=== PATIENT | female | born 1965 | race Caucasian/White ===

== ENCOUNTER 2017-09-08 20:06 | Inpatient (IN) | payer MEDICARE, MEDICAID ==
[~2017-09-08] VITALS: Ht 160 cm; Wt 87.0 kg
[~2017-09-08 20:06] MED LIST: TEAROS OU; THERAGRAN M1 TA1 PO
[2017-09-08] MEDS ORDERED: QUET100T PO (20:18)
[2017-09-08] MEDS ORDERED: HYD50 PO (20:18)
[2017-09-08] MEDS ORDERED: BUPR75 PO (20:18)
[2017-09-08] MEDS ORDERED: HALOPERIDOL LACTATE 5 MG/ML VIAL IM ONE (22:00)
[2017-09-08] MEDS ORDERED: DiphenhydrAMINE HCL 50 MG/ML VIAL IM ONE (22:00)
[2017-09-08 22:09] LABS: BASOPHILS % (AUTO) 0.5 % (0.0-2.0); EOSINOPHILS % (AUTO) 2.6 % (1.0-6.0); HEMOGLOBIN 13.8 g/dL (12.0-16.0); LYMPHOCYTES # (AUTO) 1.2 K/uL (1.0-4.8); LYMPHOCYTES % (AUTO) 27.4 % (22.0-44.0); MEAN CORPUSCULAR HEMOGLOBIN 31.8 pg (26.0-34.0); MEAN CORPUSCULAR HGB CONC 34.4 G/dL (31.0-37.0); MEAN CORPUSCULAR VOLUME 92 fL (80-100); MONOCYTES # (AUTO) 0.5 K/uL (0.1-1.0); MONOCYTES % (AUTO) 11.1 % (2.0-9.0); NEUTROPHILS # (AUTO) 2.6 K/uL (1.8-7.7); NEUTROPHILS % (AUTO) 58.4 % (40.0-70.0); RED BLOOD CELL COUNT(AUTO) 4.34 MIL/uL (4.00-5.20); RED CELL DISTRIBUTION WIDTH 14.8 % (11.5-14.5)
[2017-09-08 22:21] LABS: ANION GAP 6 mmol/L (8-16); CALCIUM, TOTAL 8.5 mg/dL (8.8-10.5); CARBON DIOXIDE 33 mmol/L (22-29); CHLORIDE 104 mmol/L (98-107); CREATININE 0.58 mg/dL (0.60-1.30); GLOMERULAR FILTR. RATE CALC > 60 mL/min (>60); GLUCOSE,RANDOM 131 mg/dL (70-110); POTASSIUM 3.7 mmol/L (3.5-5.1); SODIUM SERUM 143 mmol/L (136-145); UREA NITROGEN, BLOOD 12 mg/dL (7-18)
[2017-09-08 22:27] LABS: ALANINE AMINOTRANSFERASE 49 U/L (12-78); ALBUMIN 3.2 g/dL (3.4-5.0); ALKALINE PHOSPHATASE 134 U/L (46-116); ASPARTATE AMINOTRANSFERASE 54 U/L (15-37); BILIRUBIN,TOTAL 1.2 mg/dL (0.1-1.0); TOTAL PROTEIN, SERUM 6.3 g/dL (6.4-8.2)
[2017-09-08 22:33] LABS: PLATELET COUNT (AUTO) 51 K/uL (150-450)
[2017-09-08] MEDS ORDERED: HALOPERIDOL 5 MG TABLET PO PRN (22:45)
[2017-09-08] MEDS ORDERED: ZOLPIDEM TARTRATE 10 MG TABLET PO PRN (22:45)
[2017-09-09 02:47] VITALS: BP 109/60
[2017-09-09 02:48] VITALS: BP 109/60
[2017-09-09 02:49] VITALS: BP 109/60
[2017-09-09 09:05] VITALS: BP 100/60
[2017-09-09 16:21] VITALS: BP 119/62
[2017-09-09] MEDS: OLANZapine 5 MG TABLET PO SCH (20:54)
[2017-09-10 03:50] VITALS: BP 112/69
[2017-09-10 08:34] VITALS: BP 111/61
[2017-09-10] MEDS: FLUoxetine HCL 20 MG CAPSULE PO SCH (08:53)
[2017-09-10] MEDS: OLANZapine 5 MG TABLET PO SCH (20:36)
[2017-09-11 03:55] VITALS: BP 132/78
[2017-09-11] MEDS: LORazepam 2 MG TABLET PO PRN (04:43)
[2017-09-11 08:30] VITALS: BP 116/61
[2017-09-11] MEDS: FLUoxetine HCL 20 MG CAPSULE PO SCH (08:39)
[2017-09-11] MEDS ORDERED: CYCLOBENZAPRINE HCL 10 MG TABLET PO PRN (14:45)
[2017-09-11 14:49] VITALS: BP 134/78
[2017-09-11] MEDS: ACETAMINOPHEN 325 MG TABLET PO PRN (14:51)
[2017-09-11 16:21] VITALS: BP_SYST 111; BP_SYST 114; BP_DIAS 64; BP_DIAS 72
[2017-09-11] MEDS: OLANZapine 5 MG TABLET PO SCH (21:01)
[2017-09-12 01:23] VITALS: BP 126/74
[2017-09-12 08:11] LABS: HEMATOCRIT 42.6 % (36-46); HEMOGLOBIN 14.7 g/dL (12.0-16.0); MEAN CORPUSCULAR HEMOGLOBIN 31.8 pg (26.0-34.0); MEAN CORPUSCULAR HGB CONC 34.6 G/dL (31.0-37.0); MEAN CORPUSCULAR VOLUME 92 fL (80-100); PLATELET COUNT (AUTO) 44 K/uL (150-450); RED BLOOD CELL COUNT(AUTO) 4.63 MIL/uL (4.00-5.20); RED CELL DISTRIBUTION WIDTH 14.7 % (11.5-14.5)
[2017-09-12 08:38] LABS: ALANINE AMINOTRANSFERASE 33 U/L (12-78); ALKALINE PHOSPHATASE 113 U/L (46-116); ANION GAP 5 mmol/L (8-16); ASPARTATE AMINOTRANSFERASE 35 U/L (15-37); BILIRUBIN,TOTAL 1.2 mg/dL (0.1-1.0); CALCIUM, TOTAL 8.4 mg/dL (8.8-10.5); CARBON DIOXIDE 31 mmol/L (22-29); CHLORIDE 107 mmol/L (98-107); CHOLESTEROL 127 mg/dL (131-200); CREATININE 0.42 mg/dL (0.60-1.30); FREE T4 (FREE THYROXINE) 0.93 ng/dL (0.76-1.46); GLOMERULAR FILTR. RATE CALC > 60 mL/min (>60); GLUCOSE,RANDOM 93 mg/dL (70-110); HDL CHOLESTEROL 62 mg/dL (40-60); LDL CHOL (CALC.) 56 mg/dL (0-130); POTASSIUM 3.4 mmol/L (3.5-5.1); SODIUM SERUM 143 mmol/L (136-145); THYROID STIMULATING HORMONE 1.75 uIU/mL (0.36-3.74); TOTAL PROTEIN, SERUM 6.3 g/dL (6.4-8.2); TRIGLYCERIDES 45 mg/dL (15-150); UREA NITROGEN, BLOOD 11 mg/dL (7-18)
[2017-09-12 08:45] VITALS: BP 138/76
[2017-09-12 08:47] LABS: HEMOGLOBIN A1C 5.3 % (4.5-6.2)
[2017-09-12] MEDS: FLUoxetine HCL 20 MG CAPSULE PO SCH (08:57)
[2017-09-12] MEDS: ACETAMINOPHEN 325 MG TABLET PO PRN (09:22)
[2017-09-12 11:15] LABS: BAND NEUTROPHILS % (MANUAL) 1 % (1-5); LYMPHOCYTES % (MANUAL) 18 % (22-44); MONOCYTES % (MANUAL) 5 % (2-9); SEGMENTED NEUTROPHILS % 76 % (40-70)
[2017-09-12] MEDS: LORazepam 2 MG TABLET PO PRN (12:16)
[2017-09-12 16:11] VITALS: BP 139/76
[2017-09-12] MEDS: OLANZapine 10 MG TABLET PO SCH (20:44)
[2017-09-13] VITALS: BP 113/60
[2017-09-13] MEDS ORDERED: POTASSIUM CHLORIDE 20 MEQ ER TABLET PO ONE (07:00)
[2017-09-13] MEDS: FLUoxetine HCL 20 MG CAPSULE PO SCH (08:09)
[2017-09-13 08:29] VITALS: BP 131/66
[2017-09-13] MEDS: FOLIC ACID 1 MG TABLET PO SCH (15:41)
[2017-09-13 16:17] VITALS: BP 118/63
[2017-09-13] MEDS: HydrOXYzine PAMOATE 25 MG CAPSULE PO PRN (16:42)
[2017-09-13] MEDS: OLANZapine 10 MG TABLET PO SCH (20:32)
[2017-09-14 00:33] VITALS: BP 111/61
[2017-09-14] MEDS: FLUoxetine HCL 20 MG CAPSULE PO SCH (08:36)
[2017-09-14] MEDS: FOLIC ACID 1 MG TABLET PO SCH (08:36)
[2017-09-14 08:37] LABS: BASOPHILS % (AUTO) 0.4 % (0.0-2.0); EOSINOPHILS % (AUTO) 2.5 % (1.0-6.0); HEMOGLOBIN 14.6 g/dL (12.0-16.0); LYMPHOCYTES # (AUTO) 0.9 K/uL (1.0-4.8); LYMPHOCYTES % (AUTO) 29.9 % (22.0-44.0); MEAN CORPUSCULAR HEMOGLOBIN 31.7 pg (26.0-34.0); MEAN CORPUSCULAR HGB CONC 34.7 G/dL (31.0-37.0); MEAN CORPUSCULAR VOLUME 91 fL (80-100); MONOCYTES # (AUTO) 0.3 K/uL (0.1-1.0); MONOCYTES % (AUTO) 10.2 % (2.0-9.0); NEUTROPHILS # (AUTO) 1.8 K/uL (1.8-7.7); PLATELET COUNT (AUTO) 47 K/uL (150-450); RED CELL DISTRIBUTION WIDTH 14.3 % (11.5-14.5)
[2017-09-14 09:21] VITALS: BP 134/78
[2017-09-14] MEDS ORDERED: DiphenhydrAMINE HCL 50 MG/ML VIAL IM ONE (13:30)
[2017-09-14] MEDS ORDERED: LORazepam 2 MG/ML VIAL IM ONE (13:30)
[2017-09-14] MEDS ORDERED: HALOPERIDOL LACTATE 5 MG/ML VIAL IM ONE (13:30)
[2017-09-14 16:31] VITALS: BP 140/83
[2017-09-14] MEDS: OLANZapine 7.5 MG TABLET PO SCH (20:32)
[2017-09-15 06:35] VITALS: BP 105/66
[2017-09-15 08:34] VITALS: BP 124/77
[2017-09-15] MEDS: FLUoxetine HCL 20 MG CAPSULE PO SCH (08:45)
[2017-09-15] MEDS: FOLIC ACID 1 MG TABLET PO SCH (08:45)
[2017-09-15] MEDS: HydrOXYzine PAMOATE 25 MG CAPSULE PO PRN (16:27)
[2017-09-15 16:36] VITALS: BP 119/67
[2017-09-15] MEDS ORDERED: DiphenhydrAMINE HCL 50 MG/ML VIAL IM ONE (19:45)
[2017-09-15] MEDS ORDERED: LORazepam 2 MG/ML VIAL IM ONE (19:45)
[2017-09-15] MEDS ORDERED: HALOPERIDOL LACTATE 5 MG/ML VIAL IM ONE (19:45)
[2017-09-15 21:00] VITALS: BP 122/69
[2017-09-15] MEDS: OLANZapine 7.5 MG TABLET PO SCH (21:00)
[2017-09-16 06:00] VITALS: BP 108/72
[2017-09-16] MEDS: FLUoxetine HCL 20 MG CAPSULE PO SCH (08:31)
[2017-09-16] MEDS: FOLIC ACID 1 MG TABLET PO SCH (08:31)
[2017-09-16] MEDS: HydrOXYzine PAMOATE 25 MG CAPSULE PO PRN (09:31)
[2017-09-16] MEDS ORDERED: FLUO-191 PO (12:58)
[2017-09-16] MEDS ORDERED: OLAN10TA6 PO (12:58)
[2017-09-16] MEDS ORDERED: OLANZapine 10 MG TABLET PO SCH (21:00)
== END 2017-09-16 13:48 | disposition home or self-care (01) | DRG 885 ==
LOC: EMS 20:09 → B2X 09-09 00:27 → B2S 09-15 11:47
PROVIDERS: ADMIT Psychiatry & Neurology Psychiatry; ATTEND Psychiatry & Neurology Psychiatry
DX: F25.1 Schizoaffective disorder, depressive type (principal); D69.6 Thrombocytopenia, unspecified; R45.851 Suicidal ideations; K74.60 Unspecified cirrhosis of liver; B18.2 Chronic viral hepatitis C; F10.20 Alcohol dependence, uncomplicated; F41.9 Anxiety disorder, unspecified; F19.90 Other psychoactive substance use, unspecified, uncomplicated; K76.0 Fatty (change of) liver, not elsewhere classified; R45.850 Homicidal ideations; D72.819 Decreased white blood cell count, unspecified; F17.210 Nicotine dependence, cigarettes, uncomplicated; F60.3 Borderline personality disorder; Z79.899 Other long term (current) drug therapy
CPT/HCPCS: 80074; 82607; 82746; 83036; 84132; 84439; 84443; 85007; 96372; 99285; G0480; J1200; J1630; J2060; J3230

== ENCOUNTER 2017-11-16 15:03 | Inpatient (IN) | payer MEDICARE, MEDICAID ==
[~2017-11-16] VITALS: Ht 160 cm; Wt 90.7 kg
[~2017-11-16 15:03] MED LIST changes: +FLUO-191 PO; +OLAN10TA6 PO; -TEAROS OU; -THERAGRAN M1 TA1 PO
[2017-11-16] MEDS ORDERED: METF500T4 PO (15:12)
[2017-11-16] MEDS ORDERED: ESCI10TA PO (15:12)
[2017-11-16] MEDS ORDERED: MULT-1203 PO (15:20)
[2017-11-16] MEDS ORDERED: QUET100T PO (15:20)
[2017-11-16] MEDS ORDERED: BUPR150SR PO (15:20)
[2017-11-16] MEDS ORDERED: FOLI0.4T4 PO (15:20)
[2017-11-16 15:31] LABS: BASOPHILS % (AUTO) 0.5 % (0.0-2.0); EOSINOPHILS % (AUTO) 2.4 % (1.0-6.0); HEMATOCRIT 34.8 % (36-46); HEMOGLOBIN 12.1 g/dL (12.0-16.0); LYMPHOCYTES # (AUTO) 0.5 K/uL (1.0-4.8); LYMPHOCYTES % (AUTO) 24.7 % (22.0-44.0); MEAN CORPUSCULAR HEMOGLOBIN 31.6 pg (26.0-34.0); MEAN CORPUSCULAR HGB CONC 34.8 G/dL (31.0-37.0); MEAN CORPUSCULAR VOLUME 91 fL (80-100); MONOCYTES # (AUTO) 0.2 K/uL (0.1-1.0); MONOCYTES % (AUTO) 7.3 % (2.0-9.0); NEUTROPHILS # (AUTO) 1.4 K/uL (1.8-7.7); NEUTROPHILS % (AUTO) 65.1 % (40.0-70.0); RED BLOOD CELL COUNT(AUTO) 3.84 MIL/uL (4.00-5.20)
[2017-11-16 15:44] LABS: ANION GAP 5 mmol/L (8-16); CALCIUM, TOTAL 7.8 mg/dL (8.8-10.5); CARBON DIOXIDE 30 mmol/L (22-29); CHLORIDE 108 mmol/L (98-107); CREATININE 0.59 mg/dL (0.60-1.30); GLOMERULAR FILTR. RATE CALC > 60 mL/min (>60); GLUCOSE,RANDOM 173 mg/dL (70-110); SODIUM SERUM 143 mmol/L (136-145); UREA NITROGEN, BLOOD 8 mg/dL (7-18)
[2017-11-16 15:49] LABS: ALANINE AMINOTRANSFERASE 29 U/L (12-78); ALKALINE PHOSPHATASE 87 U/L (46-116); ASPARTATE AMINOTRANSFERASE 33 U/L (15-37); BILIRUBIN,TOTAL 1.3 mg/dL (0.1-1.0); TOTAL PROTEIN, SERUM 5.5 g/dL (6.4-8.2)
[2017-11-16] MEDS ORDERED: HALOPERIDOL 5 MG TABLET PO PRN (16:45)
[2017-11-16] MEDS ORDERED: ZOLPIDEM TARTRATE 10 MG TABLET PO PRN (16:45)
[2017-11-16 17:23] LABS: PATHOLOGY REVIEW, DIFF YES
[2017-11-16 18:20] VITALS: BP 118/80
[2017-11-16] MEDS: LORazepam 2 MG TABLET PO PRN (18:40)
[2017-11-16 19:20] VITALS: BP 120/86
[2017-11-16 20:00] VITALS: BP 109/62
[2017-11-16 21:00] VITALS: BP 107/63
[2017-11-16 22:00] VITALS: BP 104/61
[2017-11-16] MEDS ORDERED: INFLUENZA VIRUS VACCINE QVS 2017-18 (3YR+)/PF 60 MCG/0.5 ML SYRINGE IM ONE (22:00)
[2017-11-17] VITALS (9 sets, daily range): BP systolic 102–118; BP diastolic 60–79
[2017-11-17 08:35] LABS: CHOL/HDL RATIO 1.9 (3.9-5.7)
[2017-11-17] MEDS: NICOTINE 14 MG/24 HOUR PATCH TD SCH (09:00)
[2017-11-17] MEDS ORDERED: ACETAMINOPHEN 325 MG TABLET PO PRN (13:00)
[2017-11-17] MEDS ORDERED: IBUPROFEN 400 MG TABLET PO PRN (13:00)
[2017-11-17 13:28] LABS: PLATELET COUNT (AUTO) 41 K/uL (150-450)
[2017-11-17] MEDS: OLANZapine 10 MG TABLET PO SCH (21:15)
[2017-11-18 06:29] VITALS: BP_SYST 108; BP_SYST 98; BP_DIAS 64
[2017-11-18 08:09] VITALS: BP 110/70
[2017-11-18] MEDS: FLUoxetine HCL 20 MG CAPSULE PO SCH (08:31)
[2017-11-18] MEDS: FOLIC ACID 0.4 MG TABLET PO SCH (08:31)
[2017-11-18] MEDS: NICOTINE 14 MG/24 HOUR PATCH TD SCH (08:31)
[2017-11-18] MEDS: MULTIVITAMINS, THERAPEUTIC TABLET PO SCH (08:31)
[2017-11-18 09:24] VITALS: BP 110/70
[2017-11-18] MEDS: LORazepam 2 MG TABLET PO PRN (15:16)
[2017-11-18 16:00] VITALS: BP 121/74
[2017-11-18 16:09] VITALS: BP 121/74
[2017-11-18] MEDS: OLANZapine 10 MG TABLET PO SCH (20:06)
[2017-11-19 01:00] VITALS: BP 113/70
[2017-11-19] MEDS: MULTIVITAMINS, THERAPEUTIC TABLET PO SCH (08:06)
[2017-11-19] MEDS: FLUoxetine HCL 20 MG CAPSULE PO SCH (08:06)
[2017-11-19] MEDS: FOLIC ACID 0.4 MG TABLET PO SCH (08:06)
[2017-11-19] MEDS: LORazepam 2 MG TABLET PO PRN ×2 (08:07→17:08)
[2017-11-19] MEDS: NICOTINE 14 MG/24 HOUR PATCH TD SCH (08:12)
[2017-11-19 08:21] VITALS: BP 108/71
[2017-11-19 09:24] LABS: HEMOGLOBIN A1C 4.8 % (4.5-6.2)
[2017-11-19 09:36] LABS: CHOL/HDL RATIO 2.1 (3.9-5.7); THYROID STIMULATING HORMONE 1.66 uIU/mL (0.36-3.74)
[2017-11-19 13:08] VITALS: BP 108/71
[2017-11-19 16:04] VITALS: BP 107/65
[2017-11-19] MEDS: OLANZapine 10 MG TABLET PO SCH (20:31)
[2017-11-20 06:10] VITALS: BP 111/60
[2017-11-20] MEDS: FLUoxetine HCL 20 MG CAPSULE PO SCH (09:24)
[2017-11-20] MEDS: MULTIVITAMINS, THERAPEUTIC TABLET PO SCH (09:24)
[2017-11-20] MEDS: FOLIC ACID 0.4 MG TABLET PO SCH (09:24)
[2017-11-20] MEDS: LORazepam 2 MG TABLET PO PRN ×2 (09:25→18:43)
[2017-11-20] MEDS: NICOTINE 14 MG/24 HOUR PATCH TD SCH (09:25)
[2017-11-20 09:27] VITALS: BP 112/66
[2017-11-20 09:38] VITALS: BP 112/66
[2017-11-20 16:00] VITALS: BP 110/60
[2017-11-20] MEDS: OLANZapine 10 MG TABLET PO SCH (20:18)
[2017-11-21] VITALS (7 sets, daily range): BP systolic 101–118; BP diastolic 55–78
[2017-11-21] MEDS: FLUoxetine HCL 20 MG CAPSULE PO SCH (08:24)
[2017-11-21] MEDS: FOLIC ACID 0.4 MG TABLET PO SCH (08:24)
[2017-11-21] MEDS: MULTIVITAMINS, THERAPEUTIC TABLET PO SCH (08:24)
[2017-11-21] MEDS: NICOTINE 14 MG/24 HOUR PATCH TD SCH (08:24)
[2017-11-21 08:42] LABS: BASOPHILS % (AUTO) 0.3 % (0.0-2.0); EOSINOPHILS % (AUTO) 3.1 % (1.0-6.0); HEMATOCRIT 37.8 % (36-46); LYMPHOCYTES # (AUTO) 0.7 K/uL (1.0-4.8); LYMPHOCYTES % (AUTO) 28.9 % (22.0-44.0); MEAN CORPUSCULAR HEMOGLOBIN 31.4 pg (26.0-34.0); MEAN CORPUSCULAR HGB CONC 34.4 G/dL (31.0-37.0); MEAN CORPUSCULAR VOLUME 91 fL (80-100); MONOCYTES # (AUTO) 0.3 K/uL (0.1-1.0); MONOCYTES % (AUTO) 10.8 % (2.0-9.0); NEUTROPHILS # (AUTO) 1.4 K/uL (1.8-7.7); NEUTROPHILS % (AUTO) 56.9 % (40.0-70.0); PLATELET COUNT (AUTO) 44 K/uL (150-450); RED BLOOD CELL COUNT(AUTO) 4.15 MIL/uL (4.00-5.20); RED CELL DISTRIBUTION WIDTH 15.1 % (11.5-14.5)
[2017-11-21] MEDS: LORazepam 2 MG TABLET PO PRN (18:29)
[2017-11-21] MEDS: OLANZapine 10 MG TABLET PO SCH (20:08)
[2017-11-22 03:30] VITALS: BP 112/64
[2017-11-22] MEDS: FLUoxetine HCL 20 MG CAPSULE PO SCH (08:32)
[2017-11-22] MEDS: FOLIC ACID 0.4 MG TABLET PO SCH (08:32)
[2017-11-22] MEDS: MULTIVITAMINS, THERAPEUTIC TABLET PO SCH (08:32)
[2017-11-22 08:33] LABS: % IRON SATURATION 34.9 % (22-44)
[2017-11-22 08:37] VITALS: BP 120/70
[2017-11-22] MEDS: NICOTINE 14 MG/24 HOUR PATCH TD SCH (08:39)
[2017-11-22 14:00] VITALS: BP 120/70
[2017-11-22 14:02] VITALS: BP 120/70
[2017-11-22 16:07] VITALS: BP 137/72
[2017-11-22] MEDS ORDERED: FLUO-191 PO (19:03)
[2017-11-22] MEDS ORDERED: OLAN20TA2 PO (19:03)
== END 2017-11-22 19:30 | disposition home or self-care (01) | DRG 885 ==
LOC: EMS 15:03 → B2S 16:59 → B2X 11-21 17:39
PROVIDERS: ADMIT Psychiatry & Neurology Psychiatry; ATTEND Psychiatry & Neurology Psychiatry
DX: F25.9 Schizoaffective disorder, unspecified (principal); D69.59 Other secondary thrombocytopenia; R45.851 Suicidal ideations; R45.81 Low self-esteem; F17.200 Nicotine dependence, unspecified, uncomplicated; Z72.89 Other problems related to lifestyle; B18.2 Chronic viral hepatitis C; D64.9 Anemia, unspecified; D72.819 Decreased white blood cell count, unspecified; F10.10 Alcohol abuse, uncomplicated; F14.10 Cocaine abuse, uncomplicated; F32.9 Major depressive disorder, single episode, unspecified; Z91.19 Patient's noncompliance with other medical treatment and regimen
CPT/HCPCS: 82728; 83036; 83540; 83550; 84443; 99285; G0480

== ENCOUNTER 2019-08-31 11:03 | Inpatient (IN) | payer MEDICARE, MEDICAID ==
[~2019-08-31] VITALS: Ht 160 cm; Wt 101.6 kg
[~2019-08-31 11:03] MED LIST changes: +FOLI0.4T14 PO; +MULT-1203 PO; -OLAN10TA6 PO; +OLAN20TA2 PO
[2019-08-31 13:48] VITALS: BP 114/60
[2019-08-31] MEDS ORDERED: HALOPERIDOL 5 MG TABLET PO PRN ×2 (14:45→16:30)
[2019-08-31] MEDS ORDERED: ZOLPIDEM TARTRATE 10 MG TABLET PO PRN ×2 (14:45→16:30)
[2019-08-31] MEDS ORDERED: LORazepam 2 MG TABLET PO PRN ×2 (14:45→16:30)
[2019-08-31] MEDS ORDERED: INFLUENZA VIRUS VACCINE QVS 2019-20 (3YR+)/PF 60 MCG/0.5 ML SYRINGE IM ONE (15:15)
[2019-08-31] MEDS ORDERED: QUET200T PO (17:06)
[2019-08-31] MEDS ORDERED: LACT30L PO (17:06)
[2019-08-31] MEDS ORDERED: QUET100T PO (17:06)
[2019-08-31] MEDS ORDERED: BUPR-93 PO (17:06)
[2019-08-31 17:31] VITALS: BP 112/46
[2019-08-31 18:28] VITALS: BP 118/85
[2019-09-01] MEDS ORDERED: LACTULOSE 20 GM/30 ML SOLUTION UDCUP PO SCH (09:00)
[2019-09-01 09:16] LABS: BASOPHILS % (AUTO) 0.2 % (0.0-2.0); EOSINOPHILS % (AUTO) 1.6 % (1.0-6.0); HEMATOCRIT 40.2 % (36-46); LYMPHOCYTES # (AUTO) 0.5 K/uL (1.0-4.8); LYMPHOCYTES % (AUTO) 11.9 % (22.0-44.0); MEAN CORPUSCULAR HEMOGLOBIN 32.2 pg (26.0-34.0); MEAN CORPUSCULAR HGB CONC 34.9 G/dL (31.0-37.0); MEAN CORPUSCULAR VOLUME 92 fL (80-100); MONOCYTES # (AUTO) 0.3 K/uL (0.1-1.0); MONOCYTES % (AUTO) 8.4 % (2.0-9.0); NEUTROPHILS # (AUTO) 3.2 K/uL (1.8-7.7); NEUTROPHILS % (AUTO) 77.9 % (40.0-70.0); PLATELET COUNT (AUTO) 42 K/uL (150-450); RED BLOOD CELL COUNT(AUTO) 4.36 MIL/uL (4.00-5.20); RED CELL DISTRIBUTION WIDTH 16.1 % (11.5-14.5)
[2019-09-01 09:45] LABS: ALANINE AMINOTRANSFERASE 27 U/L (12-78); ALBUMIN 2.9 g/dL (3.4-5.0); ALKALINE PHOSPHATASE 93 U/L (46-116); ANION GAP 7 mmol/L (8-16); ASPARTATE AMINOTRANSFERASE 32 U/L (15-37); BILIRUBIN,TOTAL 1.7 mg/dL (0.1-1.0); CALCIUM, TOTAL 7.8 mg/dL (8.8-10.5); CARBON DIOXIDE 27 mmol/L (22-29); CHLORIDE 103 mmol/L (98-107); CHOL/HDL RATIO 1.7 (3.9-5.7); CHOLESTEROL 125 mg/dL (131-200); CREATININE 0.66 mg/dL (0.60-1.30); FREE T4 (FREE THYROXINE) 0.87 ng/dL (0.76-1.46); GLOMERULAR FILTR. RATE CALC > 60 mL/min (>60); GLUCOSE,RANDOM 213 mg/dL (70-110); HCG,QUANTITATIVE 2 mIU/mL (0-6); HDL CHOLESTEROL 74 mg/dL (40-60); LDL CHOL (CALC.) 42 mg/dL (0-130); POTASSIUM 3.8 mmol/L (3.5-5.1); SODIUM SERUM 137 mmol/L (136-145); THYROID STIMULATING HORMONE 1.67 uIU/mL (0.36-3.74); TOTAL PROTEIN, SERUM 5.5 g/dL (6.4-8.2); TRIGLYCERIDES 44 mg/dL (15-150); UREA NITROGEN, BLOOD 10 mg/dL (7-18)
== END 2019-09-01 02:16 | disposition short-term general hospital (02) | DRG 885 ==
LOC: B2S 13:20 → 6N 09-01 02:16
PROVIDERS: ADMIT Psychiatry & Neurology Psychiatry; ATTEND Psychiatry & Neurology Psychiatry
DX: F25.9 Schizoaffective disorder, unspecified (principal); F32.9 Major depressive disorder, single episode, unspecified; F10.20 Alcohol dependence, uncomplicated; M19.90 Unspecified osteoarthritis, unspecified site; F17.210 Nicotine dependence, cigarettes, uncomplicated; K74.60 Unspecified cirrhosis of liver
CPT/HCPCS: 84439; 84443; 90686; G0480

== ENCOUNTER 2019-08-31 18:59 | Inpatient (IN) | payer OTHER ==
[~2019-08-31] VITALS: Ht 160 cm; Wt 101.4 kg
[~2019-08-31 18:59] MED LIST changes: +BUPR-93 PO; +LACT30L PO; +QUET100T PO; +QUET200T PO
[2019-08-31 22:29] LABS: BASOPHILS % (AUTO) 0.4 % (0.0-2.0); EOSINOPHILS % (AUTO) 1.6 % (1.0-6.0); HEMATOCRIT 43.8 % (36-46); HEMOGLOBIN 14.9 g/dL (12.0-16.0); LYMPHOCYTES # (AUTO) 0.8 K/uL (1.0-4.8); LYMPHOCYTES % (AUTO) 17.6 % (22.0-44.0); MEAN CORPUSCULAR HEMOGLOBIN 31.5 pg (26.0-34.0); MEAN CORPUSCULAR HGB CONC 34.1 G/dL (31.0-37.0); MEAN CORPUSCULAR VOLUME 92 fL (80-100); MONOCYTES # (AUTO) 0.5 K/uL (0.1-1.0); MONOCYTES % (AUTO) 10.5 % (2.0-9.0); NEUTROPHILS # (AUTO) 3.1 K/uL (1.8-7.7); NEUTROPHILS % (AUTO) 69.9 % (40.0-70.0); RED BLOOD CELL COUNT(AUTO) 4.74 MIL/uL (4.00-5.20); RED CELL DISTRIBUTION WIDTH 16.2 % (11.5-14.5)
[2019-08-31 22:37] LABS: ANION GAP 6 mmol/L (8-16); CALCIUM, TOTAL 8.3 mg/dL (8.8-10.5); CARBON DIOXIDE 30 mmol/L (22-29); CHLORIDE 102 mmol/L (98-107); CREATININE 0.63 mg/dL (0.60-1.30); GLOMERULAR FILTR. RATE CALC > 60 mL/min (>60); GLUCOSE,RANDOM 117 mg/dL (70-110); SODIUM SERUM 138 mmol/L (136-145); UREA NITROGEN, BLOOD 7 mg/dL (7-18)
[2019-08-31 22:45] LABS: ALANINE AMINOTRANSFERASE 33 U/L (12-78); ALBUMIN 3.2 g/dL (3.4-5.0); ALKALINE PHOSPHATASE 99 U/L (46-116); ASPARTATE AMINOTRANSFERASE 34 U/L (15-37); BILIRUBIN,TOTAL 1.3 mg/dL (0.1-1.0); INR 1.2 (0.9-1.1); TOTAL PROTEIN, SERUM 6.1 g/dL (6.4-8.2)
[2019-08-31] MEDS ORDERED: LORazepam 1 MG TABLET PO ONE (22:45)
[2019-08-31] MEDS ORDERED: KETOROLAC TROMETHAMINE 60 MG/2 ML VIAL IM ONE (22:45)
[2019-08-31 23:04] LABS: PLATELET COUNT (AUTO) 47 K/uL (150-450); PLATELET MORPHOLOGY COMMENT LARGE PLTS PRESENT
[2019-08-31] MEDS ORDERED: LACTULOSE 20 GM/30 ML SOLUTION UDCUP PO ONE (23:30)
[2019-09-01] MEDS ORDERED: 0.9% SODIUM CHLORIDE 10 ML SYRINGE IVP PRN (04:45)
[2019-09-01] MEDS ORDERED: MAGNESIUM HYDROXIDE SUSPENSION 30 ML UDCUP PO PRN (04:45)
[2019-09-01] MEDS ORDERED: LACTULOSE 20 GM/30 ML SOLUTION UDCUP PO PRN (04:45)
[2019-09-01] MEDS ORDERED: OxyCODONE HCL/ACETAMINOPHEN 5-325 MG TABLET PO PRN (04:45)
[2019-09-01] MEDS ORDERED: ACETAMINOPHEN 325 MG TABLET PO PRN (04:45)
[2019-09-01 08:07] VITALS: BP 113/70
[2019-09-01] MEDS: DOCUSATE SODIUM 100 MG CAPSULE PO SCH ×2 (09:00→20:41)
[2019-09-01] MEDS ORDERED: INFLUENZA VIRUS VACCINE QVS 2019-20 (3YR+)/PF 60 MCG/0.5 ML SYRINGE IM ONE (10:30)
[2019-09-01] MEDS ORDERED: PNEUMOCOCCAL VACCINE POLYVALENT 0.5 ML VIAL [PPSV23] IM ONE (10:30)
[2019-09-01 11:13] VITALS: BP 107/71
[2019-09-01] MEDS: MULTIVITAMINS, THERAPEUTIC TABLET PO SCH (13:44)
[2019-09-01] MEDS: ChlordiazePOXIDE HCL 25 MG CAPSULE PO PRN ×2 (13:44→16:44)
[2019-09-01] MEDS: FOLIC ACID 0.4 MG TABLET PO SCH (13:44)
[2019-09-01 16:04] VITALS: BP 130/84
[2019-09-01 20:00] VITALS: BP 144/75
[2019-09-01] MEDS: LACTULOSE 20 GM/30 ML SOLUTION UDCUP PO SCH (20:40)
[2019-09-01] MEDS: QUEtiapine FUMARATE 200 MG TABLET PO SCH (20:41)
[2019-09-01] MEDS: OxyCODONE HCL/ACETAMINOPHEN 5-325 MG TABLET PO PRN (20:42)
[2019-09-02] VITALS (7 sets, daily range): BP systolic 109–144; BP diastolic 48–79
[2019-09-02] MEDS: OxyCODONE HCL/ACETAMINOPHEN 5-325 MG TABLET PO PRN (05:46)
[2019-09-02] MEDS ORDERED: ChlordiazePOXIDE HCL 25 MG CAPSULE PO PRN (07:00)
[2019-09-02 07:21] LABS: BASOPHILS % (AUTO) 0.4 % (0.0-2.0); EOSINOPHILS % (AUTO) 1.4 % (1.0-6.0); HEMATOCRIT 43.6 % (36-46); HEMOGLOBIN 14.9 g/dL (12.0-16.0); LYMPHOCYTES # (AUTO) 0.8 K/uL (1.0-4.8); LYMPHOCYTES % (AUTO) 16.4 % (22.0-44.0); MEAN CORPUSCULAR HEMOGLOBIN 31.7 pg (26.0-34.0); MEAN CORPUSCULAR HGB CONC 34.1 G/dL (31.0-37.0); MEAN CORPUSCULAR VOLUME 93 fL (80-100); MONOCYTES # (AUTO) 0.4 K/uL (0.1-1.0); MONOCYTES % (AUTO) 8.7 % (2.0-9.0); NEUTROPHILS # (AUTO) 3.5 K/uL (1.8-7.7); NEUTROPHILS % (AUTO) 73.1 % (40.0-70.0); PLATELET COUNT (AUTO) 43 K/uL (150-450); RED BLOOD CELL COUNT(AUTO) 4.69 MIL/uL (4.00-5.20); RED CELL DISTRIBUTION WIDTH 16.2 % (11.5-14.5)
[2019-09-02 07:40] LABS: ANION GAP 7 mmol/L (8-16); CALCIUM, TOTAL 8.1 mg/dL (8.8-10.5); CARBON DIOXIDE 28 mmol/L (22-29); CHLORIDE 105 mmol/L (98-107); CREATININE 0.68 mg/dL (0.60-1.30); GLOMERULAR FILTR. RATE CALC > 60 mL/min (>60); GLUCOSE,RANDOM 136 mg/dL (70-110); POTASSIUM 3.9 mmol/L (3.5-5.1); SODIUM SERUM 140 mmol/L (136-145); UREA NITROGEN, BLOOD 11 mg/dL (7-18)
[2019-09-02] MEDS: MULTIVITAMINS, THERAPEUTIC TABLET PO SCH (08:38)
[2019-09-02] MEDS: ChlordiazePOXIDE HCL 25 MG CAPSULE PO SCH ×3 (08:38→15:03)
[2019-09-02] MEDS: LACTULOSE 20 GM/30 ML SOLUTION UDCUP PO SCH ×2 (08:38→20:43)
[2019-09-02] MEDS: DOCUSATE SODIUM 100 MG CAPSULE PO SCH ×2 (08:38→20:43)
[2019-09-02] MEDS: FOLIC ACID 0.4 MG TABLET PO SCH (08:38)
[2019-09-02 13:21] LABS: ABG PCO2 49 mmHg (35-45); ABG PH 7.363 (7.35-7.450); PO2, ARTERIAL BG 68.5 mmHg (84.0-92.0); SITE, BLOOD GAS RT RADIAL; SOURCE, BLOOD GAS ARTERIAL; TEMPERATURE, FAHRENHEIT, BG 98.2 FAHREN (96.0-98.6)
[2019-09-02 13:22] LABS: ABG BASE EXCESS 1.7 mmol/L (-2.0-3.0); ABG CARBOXYHEMOGLOBIN 1.7 % (0.0-1.5); ABG HCO3 25.2 mmol/L (22.0-26.0); ABG METHEMOGLOBIN 0.2 % (0.0-1.5); ABG OXYGEN CONTENT 19.1 mL/dL (15.0-23.0); ABG OXYHEMOGLOBIN 91.2 % (94.0-100.0); ABG TOTAL HEMOGLOBIN 14.9 G/dL (12.0-18.0); O2 DEVICE,BLOOD GAS ROOM AIR (ROOM AIR)
[2019-09-02] MEDS ORDERED: ALBUTEROL SULFATE 2.5 MG/0.5 ML NEB SOLUTION NEB PRN (14:45)
[2019-09-02] MEDS ORDERED: HALOPERIDOL 5 MG TABLET PO PRN (19:00)
[2019-09-02] MEDS ORDERED: LORazepam 2 MG TABLET PO PRN (19:00)
[2019-09-02] MEDS: QUEtiapine FUMARATE 200 MG TABLET PO SCH (20:43)
[2019-09-03 00:15] VITALS: BP 117/47
[2019-09-03 04:00] VITALS: BP 108/41
[2019-09-03] MEDS: FOLIC ACID 0.4 MG TABLET PO SCH (08:30)
[2019-09-03] MEDS: MULTIVITAMINS, THERAPEUTIC TABLET PO SCH (08:30)
[2019-09-03] MEDS: LACTULOSE 20 GM/30 ML SOLUTION UDCUP PO SCH (08:30)
[2019-09-03] MEDS: DOCUSATE SODIUM 100 MG CAPSULE PO SCH (08:31)
[2019-09-03 08:34] VITALS: BP 107/56
[2019-09-03 11:38] VITALS: BP 119/57
[2019-09-03] MEDS ORDERED: FOLI1 PO (13:21)
[2019-09-03] MEDS ORDERED: ACET-2247 PO (13:30)
[2019-09-03] MEDS ORDERED: HALO5TAB2 PO (13:35)
[2019-09-03] MEDS ORDERED: LACT30L PO (13:36)
[2019-09-03] MEDS ORDERED: LORA-1001 PO (13:37)
[2019-09-03] MEDS ORDERED: THIA100T67 PO (13:38)
[2019-09-03] MEDS ORDERED: ALBU2TAB42 NEB (13:41)
[2019-09-03 15:43] VITALS: BP 132/56
[2019-09-04] MEDS ORDERED: ChlordiazePOXIDE HCL 10 MG CAPSULE PO PRN (07:00)
[2019-09-04] MEDS ORDERED: ChlordiazePOXIDE HCL 10 MG CAPSULE PO SCH (09:00)
[2019-09-05] MEDS ORDERED: ChlordiazePOXIDE HCL 10 MG CAPSULE PO PRN (07:00)
== END 2019-09-03 18:45 | DRG 442 ==
LOC: EMS 19:02 → UNDOADMIN 09-01 05:30 → 6N 09-01 05:30
PROVIDERS: ADMIT Internal Medicine; ATTEND Internal Medicine
DX: K72.90 Hepatic failure, unspecified without coma (principal); F10.239 Alcohol dependence with withdrawal, unspecified; D61.818 Other pancytopenia; R45.851 Suicidal ideations; F39 Unspecified mood [affective] disorder; K70.30 Alcoholic cirrhosis of liver without ascites; B18.2 Chronic viral hepatitis C; F17.210 Nicotine dependence, cigarettes, uncomplicated; M19.90 Unspecified osteoarthritis, unspecified site; D69.6 Thrombocytopenia, unspecified; R79.89 Other specified abnormal findings of blood chemistry; Y90.9 Presence of alcohol in blood, level not specified; F14.90 Cocaine use, unspecified, uncomplicated; Z28.21 Immunization not carried out because of patient refusal
CPT/HCPCS: 36600; 82805; 83735; 85379; 90686; G0480; J1885

== ENCOUNTER 2019-09-03 15:25 | Inpatient (IN) | payer MEDICARE, MEDICAID ==
[~2019-09-03] VITALS: Ht 160 cm; Wt 112.4 kg
[~2019-09-03 15:25] MED LIST changes: +ACET-2247 PO; +ALBU2TAB42 NEB; +FOLI1 PO; +HALO5TAB2 PO; +LORA-1001 PO; +THIA100T67 PO
[2019-09-03] MEDS ORDERED: ZOLPIDEM TARTRATE 10 MG TABLET PO PRN (16:30)
[2019-09-03 21:20] VITALS: BP 113/52
[2019-09-03] MEDS: QUEtiapine FUMARATE 200 MG TABLET PO SCH (21:45)
[2019-09-04] MEDS ORDERED: INFLUENZA VIRUS VACCINE QVS 2019-20 (3YR+)/PF 60 MCG/0.5 ML SYRINGE IM ONE (06:00)
[2019-09-04] MEDS: MULTIVITAMINS, THERAPEUTIC TABLET PO SCH (09:20)
[2019-09-04] MEDS: THIAMINE HCL 100 MG TABLET PO SCH (09:20)
[2019-09-04] MEDS: FOLIC ACID 0.4 MG TABLET PO SCH (09:21)
[2019-09-04] MEDS: LACTULOSE 20 GM/30 ML SOLUTION UDCUP PO SCH ×2 (09:21→16:28)
[2019-09-04] MEDS ORDERED: PETROLATUM,WHITE 28 GM JELLY TP PRN (10:15)
[2019-09-04] MEDS ORDERED: DOCUSATE SODIUM 100 MG CAPSULE PO PRN (10:15)
[2019-09-04] MEDS ORDERED: CloNIDine HCL 0.1 MG TABLET PO PRN (10:15)
[2019-09-04] MEDS ORDERED: GuaiFENesin/D-METHORPHAN [SUGAR-FREE] 200-20MG/10 ML SYRUP UDCUP PO PRN (10:15)
[2019-09-04] MEDS ORDERED: LOPERAMIDE HCL 2 MG CAPSULE PO PRN (10:15)
[2019-09-04] MEDS ORDERED: NICOTINE 14 MG/24 HOUR PATCH TD PRN (10:15)
[2019-09-04] MEDS ORDERED: MAGNESIUM HYDROXIDE SUSPENSION 30 ML UDCUP PO PRN (10:15)
[2019-09-04] MEDS ORDERED: ALBUTEROL SULFATE HFA 90 MCG/PUFF 8 GM INHALER IH PRN (10:15)
[2019-09-04] MEDS ORDERED: MAG HYDROX/AL HYDROX/SIMETH ES 30 ML SUSPENSION UDCUP PO PRN (10:15)
[2019-09-04] MEDS ORDERED: ONDANSETRON HCL 4 MG TABLET PO PRN (10:15)
[2019-09-04] MEDS ORDERED: ACETAMINOPHEN 325 MG TABLET PO PRN (10:15)
[2019-09-04] MEDS: IBUPROFEN 400 MG TABLET PO PRN ×2 (11:36→20:17)
[2019-09-04] MEDS: LORazepam 2 MG TABLET PO PRN (12:27)
[2019-09-04] MEDS: HALOPERIDOL 5 MG TABLET PO PRN (12:27)
[2019-09-04] MEDS: QUEtiapine FUMARATE 200 MG TABLET PO SCH (20:16)
[2019-09-05 03:09] VITALS: BP 136/82
[2019-09-05] MEDS: THIAMINE HCL 100 MG TABLET PO SCH (08:22)
[2019-09-05] MEDS: FOLIC ACID 0.4 MG TABLET PO SCH (08:22)
[2019-09-05] MEDS: MULTIVITAMINS, THERAPEUTIC TABLET PO SCH (08:22)
[2019-09-05] MEDS: LACTULOSE 20 GM/30 ML SOLUTION UDCUP PO SCH ×2 (08:23→16:07)
[2019-09-05] MEDS: LORazepam 2 MG TABLET PO PRN ×2 (08:24→14:40)
[2019-09-05 08:51] VITALS: BP 108/63
[2019-09-05] MEDS: HALOPERIDOL 5 MG TABLET PO PRN (17:08)
[2019-09-05 17:16] VITALS: BP 139/84
[2019-09-05] MEDS: QUEtiapine FUMARATE 200 MG TABLET PO SCH (21:10)
[2019-09-06] MEDS: THIAMINE HCL 100 MG TABLET PO SCH (08:02)
[2019-09-06] MEDS: LACTULOSE 20 GM/30 ML SOLUTION UDCUP PO SCH ×2 (08:02→17:30)
[2019-09-06] MEDS: FOLIC ACID 0.4 MG TABLET PO SCH (08:03)
[2019-09-06] MEDS: LORazepam 2 MG TABLET PO PRN ×3 (08:05→21:00)
[2019-09-06] MEDS: MULTIVITAMINS, THERAPEUTIC TABLET PO SCH (08:05)
[2019-09-06] MEDS: HALOPERIDOL 5 MG TABLET PO PRN ×2 (08:05→20:59)
[2019-09-06 09:37] VITALS: BP 114/71
[2019-09-06 20:09] VITALS: BP 103/67
[2019-09-06] MEDS: QUEtiapine FUMARATE 200 MG TABLET PO SCH (20:58)
[2019-09-07 03:00] VITALS: BP 100/60
[2019-09-07 08:30] VITALS: BP 129/83
[2019-09-07] MEDS: FOLIC ACID 0.4 MG TABLET PO SCH (09:11)
[2019-09-07] MEDS: LACTULOSE 20 GM/30 ML SOLUTION UDCUP PO SCH ×2 (09:11→16:02)
[2019-09-07] MEDS: MULTIVITAMINS, THERAPEUTIC TABLET PO SCH (09:11)
[2019-09-07] MEDS: THIAMINE HCL 100 MG TABLET PO SCH (09:11)
[2019-09-07 16:39] VITALS: BP 113/66
[2019-09-07] MEDS: HALOPERIDOL 5 MG TABLET PO PRN (19:01)
[2019-09-07] MEDS: LORazepam 2 MG TABLET PO PRN (19:01)
[2019-09-07] MEDS: QUEtiapine FUMARATE 200 MG TABLET PO SCH (20:07)
[2019-09-08 03:25] VITALS: BP 99/64
[2019-09-08] MEDS: MULTIVITAMINS, THERAPEUTIC TABLET PO SCH (08:45)
[2019-09-08] MEDS: THIAMINE HCL 100 MG TABLET PO SCH (08:45)
[2019-09-08] MEDS: FOLIC ACID 0.4 MG TABLET PO SCH (08:45)
[2019-09-08] MEDS: LACTULOSE 20 GM/30 ML SOLUTION UDCUP PO SCH ×2 (08:45→17:12)
[2019-09-08] MEDS: LORazepam 2 MG TABLET PO PRN (08:47)
[2019-09-08 09:21] VITALS: BP 90/49
[2019-09-08] MEDS: QUEtiapine FUMARATE 200 MG TABLET PO SCH (20:13)
[2019-09-08 21:08] VITALS: BP 103/68
[2019-09-09] MEDS: LACTULOSE 20 GM/30 ML SOLUTION UDCUP PO SCH (08:27)
[2019-09-09 11:00] VITALS: BP 135/70
== END 2019-09-09 10:00 | disposition home or self-care (01) | DRG 885 ==
LOC: 3EX 18:25
PROVIDERS: ADMIT Psychiatry & Neurology Psychiatry; ATTEND Psychiatry & Neurology Psychiatry
DX: F25.1 Schizoaffective disorder, depressive type (principal); R45.851 Suicidal ideations; F10.10 Alcohol abuse, uncomplicated; Y90.9 Presence of alcohol in blood, level not specified; M54.9 Dorsalgia, unspecified; F41.9 Anxiety disorder, unspecified; F41.0 Panic disorder [episodic paroxysmal anxiety]; K72.90 Hepatic failure, unspecified without coma; K74.60 Unspecified cirrhosis of liver; M19.90 Unspecified osteoarthritis, unspecified site; F19.10 Other psychoactive substance abuse, uncomplicated; Z79.899 Other long term (current) drug therapy; Z91.5 Personal history of self-harm; Z59.0 Homelessness; Z28.21 Immunization not carried out because of patient refusal
CPT/HCPCS: 83036; 87081; G0378

== ENCOUNTER 2020-04-03 04:28 | Inpatient (IN) | payer MEDICARE, MEDICAID ==
[~2020-04-03] VITALS: Ht 162.6 cm; Wt 90.9 kg
[~2020-04-03 04:28] MED LIST changes: -ACET-2247 PO; -ALBU2TAB42 NEB; -BUPR-93 PO; -FLUO-191 PO; -FOLI0.4T14 PO; -FOLI1 PO; -HALO5TAB2 PO; -LORA-1001 PO; -MULT-1203 PO; -OLAN20TA2 PO; -QUET100T PO; -THIA100T67 PO
[2020-04-03 05:25] LABS: BASOPHILS % (AUTO) 0.3 % (0.0-2.0); EOSINOPHILS % (AUTO) 2.8 % (1.0-6.0); HEMATOCRIT 38.2 % (36-46); HEMOGLOBIN 12.9 g/dL (12.0-16.0); LYMPHOCYTES # (AUTO) 0.6 K/uL (1.0-4.8); LYMPHOCYTES % (AUTO) 16.1 % (22.0-44.0); MEAN CORPUSCULAR HEMOGLOBIN 30.6 pg (26.0-34.0); MEAN CORPUSCULAR HGB CONC 33.8 G/dL (31.0-37.0); MEAN CORPUSCULAR VOLUME 90 fL (80-100); MONOCYTES # (AUTO) 0.4 K/uL (0.1-1.0); MONOCYTES % (AUTO) 10.6 % (2.0-9.0); NEUTROPHILS # (AUTO) 2.8 K/uL (1.8-7.7); NEUTROPHILS % (AUTO) 70.2 % (40.0-70.0); RED BLOOD CELL COUNT(AUTO) 4.23 MIL/uL (4.00-5.20); RED CELL DISTRIBUTION WIDTH 15.3 % (11.5-14.5)
[2020-04-03 05:41] LABS: ALANINE AMINOTRANSFERASE 35 U/L (12-78); ALBUMIN 3.6 g/dL (3.4-5.0); ALKALINE PHOSPHATASE 104 U/L (46-116); ANION GAP 8 mmol/L (8-16); ASPARTATE AMINOTRANSFERASE 59 U/L (15-37); BILIRUBIN,TOTAL 3.8 mg/dL (0.1-1.0); CALCIUM, TOTAL 8.6 mg/dL (8.8-10.5); CARBON DIOXIDE 29 mmol/L (22-29); CREATININE 1.09 mg/dL (0.60-1.30); GLOMERULAR FILTR. RATE CALC 52 mL/min (>60); GLUCOSE,RANDOM 147 mg/dL (70-110); TOTAL PROTEIN, SERUM 6.6 g/dL (6.4-8.2); UREA NITROGEN, BLOOD 9 mg/dL (7-18)
[2020-04-03 05:57] LABS: CHLORIDE 100 mmol/L (98-107); POTASSIUM 3.1 mmol/L (3.5-5.1); SODIUM SERUM 137 mmol/L (136-145)
[2020-04-03 06:13] LABS: PLATELET COUNT (AUTO) 49 K/uL (150-450)
[2020-04-03] MEDS ORDERED: POTASSIUM CHLORIDE 20 MEQ ER TABLET PO ONE (07:45)
[2020-04-03] MEDS ORDERED: MAGNESIUM HYDROXIDE SUSPENSION 30 ML UDCUP PO PRN (09:45)
[2020-04-03 14:25] VITALS: BP 121/53
[2020-04-03] MEDS: ACETAMINOPHEN 325 MG TABLET PO PRN (14:29)
[2020-04-03] MEDS: HEPARIN SODIUM,PORCINE 5,000 UNITS/ML VIAL SQ SCH ×2 (16:00→23:21)
[2020-04-03] MEDS: BuPROPion HCL 150 MG SR TABLET PO SCH (16:38)
[2020-04-03] MEDS: QUEtiapine FUMARATE 25 MG TABLET PO SCH ×2 (16:38→20:39)
[2020-04-03 18:05] VITALS: BP 119/72
[2020-04-03 18:06] VITALS: BP 119/72
[2020-04-03 20:00] VITALS: BP 118/59
[2020-04-03] MEDS: ZINC SULFATE 220 MG CAPSULE PO SCH (20:38)
[2020-04-03] MEDS: GABAPENTIN 100 MG CAPSULE PO SCH (20:38)
[2020-04-04] MEDS: FAMOTIDINE 20 MG TABLET PO SCH (08:28)
[2020-04-04] MEDS: ZINC SULFATE 220 MG CAPSULE PO SCH ×2 (08:28→20:15)
[2020-04-04] MEDS: GABAPENTIN 100 MG CAPSULE PO SCH ×2 (08:28→20:15)
[2020-04-04] MEDS: BuPROPion HCL 150 MG SR TABLET PO SCH (08:28)
[2020-04-04] MEDS: HEPARIN SODIUM,PORCINE 5,000 UNITS/ML VIAL SQ SCH ×2 (08:28→15:13)
[2020-04-04] MEDS: QUEtiapine FUMARATE 25 MG TABLET PO SCH ×2 (08:28→20:15)
[2020-04-04 12:30] LABS: ALANINE AMINOTRANSFERASE 37 U/L (12-78); ALBUMIN 2.8 g/dL (3.4-5.0); ALKALINE PHOSPHATASE 98 U/L (46-116); ANION GAP 5 mmol/L (8-16); ASPARTATE AMINOTRANSFERASE 52 U/L (15-37); BILIRUBIN,TOTAL 1.5 mg/dL (0.1-1.0); CALCIUM, TOTAL 8.1 mg/dL (8.8-10.5); CARBON DIOXIDE 30 mmol/L (22-29); CHLORIDE 105 mmol/L (98-107); CREATININE 0.72 mg/dL (0.60-1.30); GLOMERULAR FILTR. RATE CALC > 60 mL/min (>60); GLUCOSE,RANDOM 198 mg/dL (70-110); POTASSIUM 3.6 mmol/L (3.5-5.1); SODIUM SERUM 140 mmol/L (136-145); TOTAL PROTEIN, SERUM 5.6 g/dL (6.4-8.2); UREA NITROGEN, BLOOD 7 mg/dL (7-18)
[2020-04-04 15:28] VITALS: BP 113/56
[2020-04-04 19:26] VITALS: BP 109/59
[2020-04-05 00:07] VITALS: BP 96/52
[2020-04-05] MEDS: HEPARIN SODIUM,PORCINE 5,000 UNITS/ML VIAL SQ SCH ×4 (00:43→23:53)
[2020-04-05 05:14] VITALS: BP 109/62
[2020-04-05 07:46] LABS: BASOPHILS % (AUTO) 0.3 % (0.0-2.0); EOSINOPHILS % (AUTO) 3.6 % (1.0-6.0); HEMATOCRIT 34.7 % (36-46); HEMOGLOBIN 11.7 g/dL (12.0-16.0); LYMPHOCYTES # (AUTO) 0.4 K/uL (1.0-4.8); LYMPHOCYTES % (AUTO) 24.3 % (22.0-44.0); MEAN CORPUSCULAR HEMOGLOBIN 30.9 pg (26.0-34.0); MEAN CORPUSCULAR HGB CONC 33.7 G/dL (31.0-37.0); MEAN CORPUSCULAR VOLUME 92 fL (80-100); MONOCYTES # (AUTO) 0.2 K/uL (0.1-1.0); MONOCYTES % (AUTO) 10.8 % (2.0-9.0); NEUTROPHILS # (AUTO) 0.9 K/uL (1.8-7.7); RED BLOOD CELL COUNT(AUTO) 3.78 MIL/uL (4.00-5.20); RED CELL DISTRIBUTION WIDTH 15.2 % (11.5-14.5)
[2020-04-05 07:48] LABS: ALANINE AMINOTRANSFERASE 34 U/L (12-78); ALBUMIN 2.8 g/dL (3.4-5.0); ALKALINE PHOSPHATASE 86 U/L (46-116); ANION GAP 5 mmol/L (8-16); ASPARTATE AMINOTRANSFERASE 47 U/L (15-37); BILIRUBIN,TOTAL 1.4 mg/dL (0.1-1.0); CALCIUM, TOTAL 8.1 mg/dL (8.8-10.5); CARBON DIOXIDE 31 mmol/L (22-29); CHLORIDE 106 mmol/L (98-107); CREATININE 0.69 mg/dL (0.60-1.30); GLOMERULAR FILTR. RATE CALC > 60 mL/min (>60); GLUCOSE,RANDOM 119 mg/dL (70-110); POTASSIUM 3.6 mmol/L (3.5-5.1); SODIUM SERUM 142 mmol/L (136-145); TOTAL PROTEIN, SERUM 5.3 g/dL (6.4-8.2); UREA NITROGEN, BLOOD 6 mg/dL (7-18)
[2020-04-05 08:07] VITALS: BP 133/72
[2020-04-05] MEDS: QUEtiapine FUMARATE 25 MG TABLET PO SCH (08:15)
[2020-04-05] MEDS: GABAPENTIN 100 MG CAPSULE PO SCH ×2 (08:15→19:43)
[2020-04-05] MEDS: ZINC SULFATE 220 MG CAPSULE PO SCH ×2 (08:15→19:43)
[2020-04-05] MEDS: FAMOTIDINE 20 MG TABLET PO SCH (08:15)
[2020-04-05] MEDS: BuPROPion HCL 150 MG SR TABLET PO SCH (08:28)
[2020-04-05 09:44] LABS: PLATELET COUNT (AUTO) 34 K/uL (150-450)
[2020-04-05 17:15] VITALS: BP 124/71
[2020-04-05] MEDS: ACETAMINOPHEN 325 MG TABLET PO PRN (19:43)
[2020-04-05 19:50] VITALS: BP 112/73
[2020-04-06 03:56] VITALS: BP 93/52
[2020-04-06] MEDS: HEPARIN SODIUM,PORCINE 5,000 UNITS/ML VIAL SQ SCH ×3 (08:00→16:30)
[2020-04-06] MEDS: FAMOTIDINE 20 MG TABLET PO SCH (08:06)
[2020-04-06] MEDS: ZINC SULFATE 220 MG CAPSULE PO SCH ×2 (08:06→20:44)
[2020-04-06] MEDS: GABAPENTIN 100 MG CAPSULE PO SCH ×2 (08:06→20:44)
[2020-04-06] MEDS: ACETAMINOPHEN 325 MG TABLET PO PRN (08:07)
[2020-04-06] MEDS: BuPROPion HCL 150 MG SR TABLET PO SCH (08:09)
[2020-04-06 08:28] VITALS: BP 115/61
[2020-04-06 11:00] LABS: BASOPHILS % (AUTO) 0.3 % (0.0-2.0); CALCIUM, TOTAL 8.6 mg/dL (8.8-10.5); CREATININE 0.97 mg/dL (0.60-1.30); EOSINOPHILS % (AUTO) 3.2 % (1.0-6.0); HEMATOCRIT 37.9 % (36-46); HEMOGLOBIN 12.5 g/dL (12.0-16.0); LYMPHOCYTES # (AUTO) 0.3 K/uL (1.0-4.8); LYMPHOCYTES % (AUTO) 22.9 % (22.0-44.0); MEAN CORPUSCULAR HEMOGLOBIN 30.6 pg (26.0-34.0); MEAN CORPUSCULAR HGB CONC 32.9 G/dL (31.0-37.0); MEAN CORPUSCULAR VOLUME 93 fL (80-100); MONOCYTES # (AUTO) 0.1 K/uL (0.1-1.0); MONOCYTES % (AUTO) 8.6 % (2.0-9.0); POTASSIUM 4.5 mmol/L (3.5-5.1); RED BLOOD CELL COUNT(AUTO) 4.08 MIL/uL (4.00-5.20); RED CELL DISTRIBUTION WIDTH 15.6 % (11.5-14.5)
[2020-04-06 11:14] LABS: INR 1.2 (0.9-1.1); PROTHROMBIN TIME 12.8 SEC (9.4-11.6)
[2020-04-06 12:23] LABS: PLATELET COUNT (AUTO) 34 K/uL (150-450)
[2020-04-06 12:27] LABS: AMPHET/METH SCREEN,URINE NEGATIVE (NEGATIVE); BARBITURATE SCREEN, URINE NEGATIVE (NEGATIVE); BENZODIAZEPINES SCREEN,URINE NEGATIVE (NEGATIVE); CANNABINOID SCREEN,URINE NEGATIVE (NEGATIVE); COCAINE SCREEN,URINE NEGATIVE (NEGATIVE); METHADONE SCREEN, URINE NEGATIVE (NEGATIVE); OPIATE SCREEN,URINE NEGATIVE (NEGATIVE)
[2020-04-06 12:28] LABS: PHENCYCLIDINE SCREEN,URINE NEGATIVE (NEGATIVE)
[2020-04-06 13:05] LABS: HIV 1-2 SCREEN 4TH GEN W/RFLX Non Reactive (Non Reactive)
[2020-04-06] MEDS: NYSTATIN 30 GM CREAM TP SCH ×2 (13:05→20:49)
[2020-04-06] MEDS: OLANZapine 5 MG TABLET PO SCH ×2 (14:16→20:44)
[2020-04-06 15:29] VITALS: BP 121/67
[2020-04-06 20:35] VITALS: BP 116/67
[2020-04-07] MEDS: HEPARIN SODIUM,PORCINE 5,000 UNITS/ML VIAL SQ SCH ×3 (00:02→16:00)
[2020-04-07 00:11] VITALS: BP 102/49
[2020-04-07 00:13] VITALS: BP 136/68
[2020-04-07 05:13] VITALS: BP 132/58
[2020-04-07 07:04] LABS: BASOPHILS % (AUTO) 0.3 % (0.0-2.0); EOSINOPHILS % (AUTO) 4.2 % (1.0-6.0); HEMATOCRIT 37.9 % (36-46); HEMOGLOBIN 12.8 g/dL (12.0-16.0); LYMPHOCYTES # (AUTO) 0.5 K/uL (1.0-4.8); LYMPHOCYTES % (AUTO) 25.9 % (22.0-44.0); MEAN CORPUSCULAR HGB CONC 33.8 G/dL (31.0-37.0); MEAN CORPUSCULAR VOLUME 92 fL (80-100); MONOCYTES # (AUTO) 0.2 K/uL (0.1-1.0); MONOCYTES % (AUTO) 9.2 % (2.0-9.0); NEUTROPHILS # (AUTO) 1.3 K/uL (1.8-7.7); NEUTROPHILS % (AUTO) 60.4 % (40.0-70.0); PLATELET COUNT (AUTO) 36 K/uL (150-450); RED BLOOD CELL COUNT(AUTO) 4.14 MIL/uL (4.00-5.20); RED CELL DISTRIBUTION WIDTH 15.8 % (11.5-14.5)
[2020-04-07 07:09] LABS: ANION GAP 2 mmol/L (8-16); CALCIUM, TOTAL 8.4 mg/dL (8.8-10.5); CARBON DIOXIDE 33 mmol/L (22-29); CHLORIDE 107 mmol/L (98-107); GLOMERULAR FILTR. RATE CALC > 60 mL/min (>60); GLUCOSE,RANDOM 107 mg/dL (70-110); POTASSIUM 3.9 mmol/L (3.5-5.1); SODIUM SERUM 142 mmol/L (136-145); UREA NITROGEN, BLOOD 8 mg/dL (7-18)
[2020-04-07 07:58] VITALS: BP 117/63
[2020-04-07] MEDS: ZINC SULFATE 220 MG CAPSULE PO SCH ×2 (08:32→20:50)
[2020-04-07] MEDS: FAMOTIDINE 20 MG TABLET PO SCH (08:32)
[2020-04-07] MEDS: OLANZapine 5 MG TABLET PO SCH ×2 (08:32→20:51)
[2020-04-07] MEDS: GABAPENTIN 100 MG CAPSULE PO SCH ×2 (08:32→20:50)
[2020-04-07] MEDS: BuPROPion HCL 150 MG SR TABLET PO SCH (08:32)
[2020-04-07] MEDS: NYSTATIN 30 GM CREAM TP SCH ×2 (08:42→21:24)
[2020-04-07] MEDS: ACETAMINOPHEN 325 MG TABLET PO PRN ×2 (10:37→21:18)
[2020-04-07 12:35] LABS: BASOPHILS % (AUTO) 0.3 % (0.0-2.0); EOSINOPHILS % (AUTO) 3.2 % (1.0-6.0); HEMATOCRIT 41.1 % (36-46); HEMOGLOBIN 13.7 g/dL (12.0-16.0); LYMPHOCYTES # (AUTO) 0.5 K/uL (1.0-4.8); LYMPHOCYTES % (AUTO) 17.4 % (22.0-44.0); MEAN CORPUSCULAR HEMOGLOBIN 30.6 pg (26.0-34.0); MEAN CORPUSCULAR HGB CONC 33.3 G/dL (31.0-37.0); MEAN CORPUSCULAR VOLUME 92 fL (80-100); MONOCYTES # (AUTO) 0.2 K/uL (0.1-1.0); MONOCYTES % (AUTO) 7.7 % (2.0-9.0); NEUTROPHILS % (AUTO) 71.4 % (40.0-70.0); PLATELET COUNT (AUTO) 48 K/uL (150-450); RED BLOOD CELL COUNT(AUTO) 4.47 MIL/uL (4.00-5.20); RED CELL DISTRIBUTION WIDTH 15.9 % (11.5-14.5)
[2020-04-07 15:20] VITALS: BP 130/61
[2020-04-07] MEDS ORDERED: MELATONIN 3 MG TABLET PO PRN (17:45)
[2020-04-07 20:00] VITALS: BP 116/75
[2020-04-08] VITALS: BP 120/67
[2020-04-08] MEDS: HEPARIN SODIUM,PORCINE 5,000 UNITS/ML VIAL SQ SCH ×3 (00:36→15:11)
[2020-04-08 05:00] VITALS: BP 122/62
[2020-04-08] MEDS: ACETAMINOPHEN 325 MG TABLET PO PRN ×2 (05:19→15:11)
[2020-04-08 08:12] VITALS: BP 137/74
[2020-04-08] MEDS: ZINC SULFATE 220 MG CAPSULE PO SCH ×2 (08:29→20:03)
[2020-04-08] MEDS: BuPROPion HCL 150 MG SR TABLET PO SCH (08:29)
[2020-04-08] MEDS: OLANZapine 5 MG TABLET PO SCH ×2 (08:30→20:02)
[2020-04-08] MEDS: FAMOTIDINE 20 MG TABLET PO SCH (08:30)
[2020-04-08] MEDS: GABAPENTIN 100 MG CAPSULE PO SCH ×2 (08:30→20:32)
[2020-04-08] MEDS: NYSTATIN 30 GM CREAM TP SCH ×2 (08:37→20:32)
[2020-04-08 15:48] VITALS: BP 168/80
[2020-04-08 16:08] VITALS: BP 141/70
[2020-04-08] MEDS ORDERED: MELATONIN 5 MG TABLET PO PRN (18:30)
[2020-04-08 20:00] VITALS: BP 128/93
[2020-04-09] MEDS: HEPARIN SODIUM,PORCINE 5,000 UNITS/ML VIAL SQ SCH ×3 (00:01→15:35)
[2020-04-09 04:43] VITALS: BP 133/62
[2020-04-09 08:14] VITALS: BP 160/77
[2020-04-09] MEDS: GABAPENTIN 100 MG CAPSULE PO SCH ×2 (09:05→21:07)
[2020-04-09] MEDS: OLANZapine 5 MG TABLET PO SCH ×2 (09:06→21:07)
[2020-04-09] MEDS: ZINC SULFATE 220 MG CAPSULE PO SCH ×2 (09:06→21:07)
[2020-04-09] MEDS: FAMOTIDINE 20 MG TABLET PO SCH (09:06)
[2020-04-09] MEDS: BuPROPion HCL 150 MG SR TABLET PO SCH (09:06)
[2020-04-09] MEDS: NYSTATIN 30 GM CREAM TP SCH (09:07)
[2020-04-09 10:00] LABS: BASOPHILS % (AUTO) 0.5 % (0.0-2.0); EOSINOPHILS % (AUTO) 3.6 % (1.0-6.0); HEMATOCRIT 39.5 % (36-46); HEMOGLOBIN 13.4 g/dL (12.0-16.0); LYMPHOCYTES # (AUTO) 0.5 K/uL (1.0-4.8); MEAN CORPUSCULAR VOLUME 91 fL (80-100); MONOCYTES # (AUTO) 0.2 K/uL (0.1-1.0); MONOCYTES % (AUTO) 8.7 % (2.0-9.0); NEUTROPHILS # (AUTO) 1.4 K/uL (1.8-7.7); NEUTROPHILS % (AUTO) 64.2 % (40.0-70.0); PLATELET COUNT (AUTO) 38 K/uL (150-450); RED BLOOD CELL COUNT(AUTO) 4.34 MIL/uL (4.00-5.20); RED CELL DISTRIBUTION WIDTH 15.9 % (11.5-14.5)
[2020-04-09 10:16] LABS: ALANINE AMINOTRANSFERASE 28 U/L (12-78); ALKALINE PHOSPHATASE 94 U/L (46-116); ANION GAP 2 mmol/L (8-16); ASPARTATE AMINOTRANSFERASE 32 U/L (15-37); BILIRUBIN,TOTAL 1.2 mg/dL (0.1-1.0); CALCIUM, TOTAL 8.5 mg/dL (8.8-10.5); CARBON DIOXIDE 31 mmol/L (22-29); CHLORIDE 105 mmol/L (98-107); CREATININE 0.76 mg/dL (0.60-1.30); GLOMERULAR FILTR. RATE CALC > 60 mL/min (>60); GLUCOSE,RANDOM 212 mg/dL (70-110); POTASSIUM 4.1 mmol/L (3.5-5.1); SODIUM SERUM 138 mmol/L (136-145); UREA NITROGEN, BLOOD 8 mg/dL (7-18)
[2020-04-09 15:41] VITALS: BP 121/71
[2020-04-09 19:54] VITALS: BP 111/70
[2020-04-10] MEDS: HEPARIN SODIUM,PORCINE 5,000 UNITS/ML VIAL SQ SCH ×3 (01:13→16:00)
[2020-04-10] MEDS: NYSTATIN 30 GM CREAM TP SCH ×2 (01:16→08:32)
[2020-04-10 01:28] VITALS: BP 112/67
[2020-04-10 04:54] VITALS: BP 136/60
[2020-04-10 08:02] VITALS: BP 114/64
[2020-04-10] MEDS: GABAPENTIN 100 MG CAPSULE PO SCH (08:32)
[2020-04-10] MEDS: BuPROPion HCL 150 MG SR TABLET PO SCH (08:32)
[2020-04-10] MEDS: FAMOTIDINE 20 MG TABLET PO SCH (08:32)
[2020-04-10] MEDS: ZINC SULFATE 220 MG CAPSULE PO SCH (08:32)
[2020-04-10] MEDS: OLANZapine 5 MG TABLET PO SCH (08:32)
[2020-04-10] MEDS ORDERED: BUPR150SR PO (15:35)
[2020-04-10] MEDS ORDERED: GABA-1216 PO (15:36)
[2020-04-10] MEDS ORDERED: OLAN5TAB2 PO (15:37)
== END 2020-04-10 17:35 | disposition home or self-care (01) | DRG 178 ==
LOC: EMS 04:28 → 6N 12:38
PROVIDERS: ADMIT Internal Medicine; ATTEND Internal Medicine
DX: U07.1 COVID-19 (principal); E44.0 Moderate protein-calorie malnutrition; F19.10 Other psychoactive substance abuse, uncomplicated; B19.20 Unspecified viral hepatitis C without hepatic coma; K74.60 Unspecified cirrhosis of liver; F10.10 Alcohol abuse, uncomplicated; D69.6 Thrombocytopenia, unspecified; F41.9 Anxiety disorder, unspecified; M19.90 Unspecified osteoarthritis, unspecified site; E87.6 Hypokalemia; F31.9 Bipolar disorder, unspecified; G89.29 Other chronic pain; B36.9 Superficial mycosis, unspecified; E66.9 Obesity, unspecified; Z68.34 Body mass index [BMI] 34.0-34.9, adult
CPT/HCPCS: 76705; 85379; 87389; 87426; G0480; J1644; 36415-L1; 36415-TC; 71045-TC; U0003-CS

== ENCOUNTER 2020-12-16 02:50 | Emergency (ER) | payer MEDICARE, OTHER ==
[~2020-12-16] VITALS: Ht 160 cm; Wt 86.4 kg
[~2020-12-16 02:50] MED LIST changes: +BUPR150SR PO; +GABA-1216 PO; -LACT30L PO; +OLAN5TAB52 PO; -QUET200T PO
[2020-12-16] MEDS ORDERED: 0.9% SODIUM CHLORIDE 10 ML SYRINGE IVP PRN (03:15)
[2020-12-16] MEDS ORDERED: ONDANSETRON HCL 4 MG/2 ML VIAL IVP ONE (03:15)
[2020-12-16] MEDS ORDERED: ACETAMINOPHEN 500 MG TABLET PO ONE (03:15)
[2020-12-16] MEDS ORDERED: SODIUM CHLORIDE 0.9% 2,000 ML IV ONE (03:15)
[2020-12-16 03:59] LABS: ANION GAP 9 mmol/L (8-16); CALCIUM, TOTAL 7.5 mg/dL (8.8-10.5); CARBON DIOXIDE 27 mmol/L (22-29); CHLORIDE 103 mmol/L (98-107); CREATININE 0.66 mg/dL (0.60-1.30); GLOMERULAR FILTR. RATE CALC > 60 mL/min (>60); GLUCOSE,RANDOM 108 mg/dL (70-110); POTASSIUM 3.2 mmol/L (3.5-5.1); SODIUM SERUM 139 mmol/L (136-145); UREA NITROGEN, BLOOD 5 mg/dL (7-18)
[2020-12-16 04:03] LABS: INR 1.3 (0.9-1.1); PROTHROMBIN TIME 13.6 SEC (9.4-11.6)
[2020-12-16 04:06] LABS: ALANINE AMINOTRANSFERASE 30 U/L (12-78); ALBUMIN 3.1 g/dL (3.4-5.0); ALKALINE PHOSPHATASE 109 U/L (46-116); ASPARTATE AMINOTRANSFERASE 41 U/L (15-37); BILIRUBIN,TOTAL 2.3 mg/dL (0.1-1.0); TOTAL PROTEIN, SERUM 6.2 g/dL (6.4-8.2)
[2020-12-16 04:08] LABS: LACTIC ACID 1.7 mmol/L (0.4-2.0)
[2020-12-16 05:00] LABS: COVID AG,FIA SOURCE NASOPHARYNGEAL
[2020-12-16] MEDS ORDERED: POTASSIUM CHLORIDE 20 MEQ ER TABLET PO ONE (05:00)
[2020-12-16 05:05] LABS: BASOPHILS % (AUTO) 0.2 % (0.0-2.0); EOSINOPHILS % (AUTO) 0.2 % (1.0-6.0); HEMATOCRIT 40.3 % (36-46); HEMOGLOBIN 13.8 g/dL (12.0-16.0); LYMPHOCYTES # (AUTO) 0.8 K/uL (1.0-4.8); LYMPHOCYTES % (AUTO) 12.1 % (22.0-44.0); MEAN CORPUSCULAR HEMOGLOBIN 32.8 pg (26.0-34.0); MEAN CORPUSCULAR HGB CONC 34.2 G/dL (31.0-37.0); MEAN CORPUSCULAR VOLUME 96 fL (80-100); MONOCYTES # (AUTO) 0.7 K/uL (0.1-1.0); MONOCYTES % (AUTO) 10.7 % (2.0-9.0); NEUTROPHILS # (AUTO) 5.1 K/uL (1.8-7.7); NEUTROPHILS % (AUTO) 76.8 % (40.0-70.0); RED BLOOD CELL COUNT(AUTO) 4.21 MIL/uL (4.00-5.20); RED CELL DISTRIBUTION WIDTH 15.5 % (11.5-14.5)
[2020-12-16 05:13] LABS: PLATELET COUNT (AUTO) 56 K/uL (150-450)
[2020-12-16 05:42] LABS: APPEARANCE,URINE CLOUDY (CLEAR); BILIRUBIN,URINE NEGATIVE (NEGATIVE); GLUCOSE, URINE (UA) 100 mg/dL (NEGATIVE); KETONES,URINE NEGATIVE (NEGATIVE); LEUKOCYTE ESTERASE ,URINE NEGATIVE (NEGATIVE); NITRATE,URINE NEGATIVE (NEGATIVE); OCCULT BLOOD,URINE TRACE (NEGATIVE); PROTEIN,URINE NEGATIVE (NEGATIVE)
[2020-12-16 06:05] LABS: BACTERIA,URINE Many /HPF (None Seen); RBC,URINE 0-2 /HPF (0-2); WBC,URINE 0-2 /HPF (0-5)
[2020-12-16 06:30] VITALS: BP 123/71
== END 2020-12-16 07:28 | disposition home or self-care (01) ==
LOC: EMS 02:52
DX: J40 Bronchitis, not specified as acute or chronic (principal); F25.9 Schizoaffective disorder, unspecified; E87.6 Hypokalemia; D69.6 Thrombocytopenia, unspecified; M79.10 Myalgia, unspecified site; R50.9 Fever, unspecified; F17.210 Nicotine dependence, cigarettes, uncomplicated; Z20.822 Contact with and (suspected) exposure to COVID-19; Z87.19 Personal history of other diseases of the digestive system
CPT/HCPCS: 36415; 71045; 80053; 81001; 83605; 85025; 85610; 87040; 87077; 87086; 87186; 87426; 93005; 96361; 96374; 99285; 99406; J2405; J7030

== ENCOUNTER 2021-06-06 20:43 | Emergency (ER) | payer MEDICARE, OTHER ==
[~2021-06-06] VITALS: Ht 160 cm; Wt 81.8 kg
[2021-06-06 22:39] LABS: APPEARANCE,URINE CLOUDY (CLEAR); BILIRUBIN,URINE NEGATIVE (NEGATIVE); GLUCOSE, URINE (UA) NEGATIVE (NEGATIVE); KETONES,URINE NEGATIVE (NEGATIVE); LEUKOCYTE ESTERASE ,URINE NEGATIVE (NEGATIVE); NITRATE,URINE NEGATIVE (NEGATIVE); OCCULT BLOOD,URINE NEGATIVE (NEGATIVE); PROTEIN,URINE NEGATIVE (NEGATIVE)
[2021-06-06 22:46] LABS: MEAN CORPUSCULAR HGB CONC 33.8 G/dL (31.0-37.0); MONOCYTES # (AUTO) 0.4 K/uL (0.1-1.0); RED CELL DISTRIBUTION WIDTH 15.6 % (11.5-14.5)
[2021-06-06 22:46] LABS: BACTERIA,URINE Few /HPF (None Seen); RBC,URINE 0-2 /HPF (0-2); SQUAMOUS EPITHELIAL CELL,UR Rare /LPF (None Seen); WBC,URINE 0-2 /HPF (0-5)
[2021-06-06 22:47] LABS: AMPHET/METH SCREEN,URINE POSITIVE (NEGATIVE); BARBITURATE SCREEN, URINE NEGATIVE (NEGATIVE); BENZODIAZEPINES SCREEN,URINE POSITIVE (NEGATIVE); CANNABINOID SCREEN,URINE NEGATIVE (NEGATIVE); COCAINE SCREEN,URINE POSITIVE (NEGATIVE); METHADONE SCREEN, URINE NEGATIVE (NEGATIVE); OPIATE SCREEN,URINE NEGATIVE (NEGATIVE); PHENCYCLIDINE SCREEN,URINE NEGATIVE (NEGATIVE)
[2021-06-06 22:52] LABS: BASOPHILS % (AUTO) 0.9 % (0.0-2.0); HEMATOCRIT 41.1 % (36-46); HEMOGLOBIN 13.9 g/dL (12.0-16.0); LYMPHOCYTES % (AUTO) 26.4 % (22.0-44.0); MEAN CORPUSCULAR VOLUME 98 fL (80-100); MONOCYTES % (AUTO) 10.4 % (2.0-9.0); NEUTROPHILS # (AUTO) 2.2 K/uL (1.8-7.7); NEUTROPHILS % (AUTO) 58.3 % (40.0-70.0); PLATELET COUNT (AUTO) 65 K/uL (150-450); RED BLOOD CELL COUNT(AUTO) 4.21 MIL/uL (4.00-5.20)
[2021-06-06 23:01] LABS: ALANINE AMINOTRANSFERASE 24 U/L (12-78); ALBUMIN 2.9 g/dL (3.4-5.0); ALKALINE PHOSPHATASE 168 U/L (46-116); ANION GAP 3 mmol/L (8-16); ASPARTATE AMINOTRANSFERASE 37 U/L (15-37); BILIRUBIN,TOTAL 1.8 mg/dL (0.1-1.0); CALCIUM, TOTAL 7.8 mg/dL (8.8-10.5); CARBON DIOXIDE 32 mmol/L (22-29); CHLORIDE 107 mmol/L (98-107); CREATININE 0.55 mg/dL (0.60-1.30); GLOMERULAR FILTR. RATE CALC > 60 mL/min (>60); GLUCOSE,RANDOM 153 mg/dL (70-110); LIPASE 218 U/L (73-393); SODIUM SERUM 142 mmol/L (136-145); TOTAL PROTEIN, SERUM 6.5 g/dL (6.4-8.2); UREA NITROGEN, BLOOD 3 mg/dL (7-18)
[2021-06-06 23:12] LABS: POTASSIUM 2.8 mmol/L (3.5-5.1)
[2021-06-06] MEDS ORDERED: POTASSIUM CHLORIDE 10% 40 MEQ/30 ML LIQUID UDCUP PO ONE ×2 (23:15→23:45)
[2021-06-07] MEDS ORDERED: ACETAMINOPHEN 500 MG TABLET PO ONE (00:45)
[2021-06-07] MEDS ORDERED: BACLOFEN 10 MG TABLET PO ONE (06:00)
[2021-06-07 07:20] VITALS: BP 140/79
== END 2021-06-07 07:33 | disposition home or self-care (01) ==
LOC: EMS 20:52
DX: F15.10 Other stimulant abuse, uncomplicated (principal); M48.55XA Collapsed vertebra, not elsewhere classified, thoracolumbar region, initial encounter for fracture; F25.9 Schizoaffective disorder, unspecified; F14.10 Cocaine abuse, uncomplicated; F10.129 Alcohol abuse with intoxication, unspecified; M19.90 Unspecified osteoarthritis, unspecified site; I10 Essential (primary) hypertension; K74.60 Unspecified cirrhosis of liver; F17.210 Nicotine dependence, cigarettes, uncomplicated; Z86.19 Personal history of other infectious and parasitic diseases
CPT/HCPCS: 36415; 74176; 80053; 80307; 81001; 83690; 84484; 85025; 99284; G0480